=== PATIENT | male | born 1980 | race Caucasian/White ===

== ENCOUNTER 2022-05-01 16:28 | Outpatient (CLI) | payer OTHER, SELFPAY | END 2022-05-01 16:29 | disposition home or self-care (01) | LOC: AMB 05-20 13:20 | PROVIDERS: Visit Provider Emergency Medicine | DX: S29.9XXA Unspecified injury of thorax, initial encounter (principal); R20.2 Paresthesia of skin; V53.5XXA Driver of pick-up truck or van injured in collision with car, pick-up truck or van in traffic accident, initial encounter; Y92.410 Unspecified street and highway as the place of occurrence of the external cause | CPT/HCPCS: A0425; A0433 ==